=== PATIENT | male | born 1985 | race Caucasian/White ===

== ENCOUNTER 2020-11-16 14:10 | Emergency (ER) | payer BC ==
[~2020-11-16] VITALS: Ht 185.4 cm; Wt 127.0 kg
[2020-11-16 15:04] LABS: BILIRUBIN,URINE SMALL (NEG); CLARITY,URINE TURBID; COLOR,URINE AMBER; GLUCOSE,URINE 250 mg/dL (NEG); NITRITE,URINE POS (NEG); RBC,URINE >40 /HPF (0-2); UROBILINOGEN,URINE 0.2 mg/dL (0.2 mg/dL); WBC,URINE >40 /HPF (0-4)
[2020-11-16 15:05] LABS: BACTERIA,URINE MOD /HPF (0-FEW); SQUAMOUS EPITHELIAL CELL,UR FEW /LPF
[2020-11-16] MEDS ORDERED: CEFP200T PO (16:06)
--- NOTE | 2020-11-16 16:23 | PHYS DOC ---
Past History Additional Past Medical Histor: Meth abuse Past Surgical History: Cholecystectomy Alcohol Use: None General Adult EDM: Chief Complaint: BLOOD IN URINE HPI: HPI: 35-year-old male past medical history significant for diabetes, bipolar disorder, hypertension and hyperlipidemia, presents the ED with complaints of dysuria and hematuria for the past week. Patient states he relapsed and smoked methamphetamine 1 week ago and is now having groin pain every time he urinates. He denies any sexual activity, urethral discharge, genital rash and testicular discomfort. Review of Systems: Review of Systems: Constitutional: Denies fever or chills Eyes: Denies change in visual acuity HENT: Denies nasal congestion or sore throat Respiratory: Denies cough or shortness of breath Cardiovascular: Denies chest pain or edema GI: Denies nausea or vomiting, : Denies incontinence or saddle anesthesia or urethral discharge Musculoskeletal: Denies back pain or CVA tenderness Integument: Denies rash or diaphoresis Neurologic: Denies headache, focal weakness or sensory changes Endocrine: Denies polyuria or polydipsia Lymphatic: Denies swollen glands Psychiatric: Denies depression or anxiety Allergies: Allergies: Allergies Coded Allergies Type Severity Reaction Last Updated Verified No Known Drug Allergies 11/16/20 No Physical Exam: PE: Constitutional: Well developed, well nourished, no acute distress, non-toxic appearance. HENT: Normocephalic, atraumatic, Eyes: EOMI, conjunctiva normal, no discharge. Neck: Normal range of motion, supple, Cardiovascular: S1/2 present, regular rhythm Lungs & Thorax: Speaking in full sentences, bilateral equal chest rise, no tachypnea or increased work of breathing Abdomen: soft, no tenderness, Skin: Warm, dry, no erythema, no rash. [] Extremities: No tenderness, no cyanosis, Neurologic: Alert and oriented X 3, normal motor function, normal sensory function, no focal deficits noted. [] Psychologic: Affect normal, judgement normal, mood normal. [] : Chaperoned by male RN, circumcised, no scrotal pain, no urethral discharge, no rash, no bleeding or signs of trauma Current Patient Data: Labs: Laboratory Tests Test 11/16/20 14:33 Urine Collection Type Unknown Urine Color Ida Urine Clarity Turbid Urine pH 5.5 Urine Specific [place] >=1.030 Urine Protein >100 mg/dl (NEG-TRACE) Urine Glucose (UA) 250 mg/dL (NEG) Urine Ketones (Stick) 15 mg/dL (NEG) Urine Blood Large (NEG) Urine Nitrite Pos (NEG) Urine Bilirubin Small (NEG) Urine Urobilinogen Dipstick 0.2 mg/dL (0.2 mg/dL) Urine Leukocyte Esterase Small (NEG) Urine RBC >40 /HPF (0-2) Urine WBC >40 /HPF (0-4) Urine Squamous Epithelial Cells Few /LPF Urine Bacteria Mod /HPF (0-FEW) Vital Signs: Vital Signs Date Time Temp Pulse Resp B/P (MAP) Pulse Ox O2 Delivery O2 Flow Rate FiO2 11/16/20 14:17 98.3 104 16 111/54 (73) 98 Room Air EKG: EKG: [] Radiology/Procedures: Radiology/Procedures: [] Heart Score: C/O Chest Pain: No Risk Factors: Risk Factors: DM, Current or recent (<one month) smoker, HTN, HLP, family history of CAD, obesity. Risk Scores: Score 0 - 3: 2.5% MACE over next 6 weeks - Discharge Home Score 4 - 6: 20.3% MACE over next 6 weeks - Admit for Clinical Observation Score 7 - 10: 72.7% MACE over next 6 weeks - Early Invasive Strategies Course & Med Decision Making: Course & Med Decision Making Pertinent Labs and Imaging studies reviewed. (See chart for details) Concern for UTI with likely hemorrhagic cystitis. exam with no signs of trauma. Patient reports he is not sexually active. We will treat for com plicated UTI. Will discharge home with strict ED return precautions were given for fever, flulike symptoms, flank pain, nausea, vomiting or confusion. Encouraged urgent outpatient follow-up with PMD and urology for definitive management. Life-threatening processes were considered but are low suspicion at this time, given history, physical exam and ED workup. Pt was educated on all prescription medications and adverse effects. All patient's questions were answered and pt was stable at time of discharge. Life/limb-threatening differential includes but is not limited to, trauma, infection, nephrolithiasis, kidney disease, malignancy, obstructive uropathy, BPH, AAA/AVF/aortic dissection, or schistosomiasis. I have spoken with the patient and/or caregivers. I explained the patient's condition, diagnoses and treatment plan based on the information available to me at this time. I have answered the patient and/or caregiver's questions and addressed any concerns. The patient and/or caregivers have a good understanding of patient's diagnosis, condition and treatment plan as can be expected at this point. Vital signs have been stable. Patient's condition is stable and appropriate for discharge from the emergency department. Patient will pursue further outpatient evaluation with primary care physician or other designated or consulting physician as outlined in the discharge instructions. The patient and/or caregivers are agreeable to this plan of care and follow-up instructions have been explained in detail. The patient and/or caregivers have received these instructions in written form and have expressed an understanding of the discharge instructions. The patient and/or caregivers are aware that any significant change of condition or worsening of symptoms sh ould prompt immediate return to this or the closest emergency department or call to [phone]. Josh Disclaimer: Josh Disclaimer: This electronic medical record was generated, in whole or in part, using a voice recognition dictation system. Departure Departure: Impression: Primary Impression: UTI (urinary tract infection) Disposition: 01 HOME / SELF CARE / HOMELESS Condition: STABLE Referrals: JERRY MACARIO (PCP) Follow up with your pcp in 1-2 days or [facility] [phone] OR [facility]-Dr. Ronquillo [phone] Patient Instructions: Urinary Tract Infection Additional Instructions: FOLLOW WITH UROLOGY: [facility] [address] [place] [address] OR [facility] [address] [place] [id number] EMERGENCY DEPARTMENT GENERAL DISCHARGE INSTRUCTIONS Thank you for coming to [facility] (ED) today and trusting us with you care. We trust that you had a positivie experience in our Emergency Department. If you wish to speak to the department management, you may call the director at [phone]. YOUR FOLLOW UP INSTRUCTIONS ARE FOLLOWS: 1. Do you have a private Doctor? If you do not have a private doctor, please ask for a resource list of physicians or clinics that may be able to assist you with follow up care. 2. The Emergency Physician has interpreted your x-rays. The X-Ray specialist will also review them. If there is a change in the findings, you will be notified in 48 hours when at all possible. 3. A lab test or culture has been done, your results will be reviewed and you will be notified if you need a change in treatment. ADDITIONAL INSTRUCTIONS AND INFORMATION: 1. Your care today has been supervised by a physician who is specially trained in emergency care. Many problems require more than one evaluation for a complete diagnosis and treatment. We recommend that you schedule your follow up appointment as recommended to ensure complete treatment of you illness or injury. If you are unable to obtain follow up care and continue to have a problem, or if your condition worsens, we recommend that you return to the ED. 2. We are not able to safely determine your condition over the phone nor are we able to give sound medical advice over the phone. For these safety reasons, if you call for medical advice we will ask you to come to the ED for further evaluation. 3. If you have any questions regarding these discharge instructions please call the ED at [phone]. SAFETY INFORMATION: In the interest of safety, wellness, and injury prevention; we encourage you to wear your sealbelt, if you smoke; quite smoking, and we encourage family to use a protective helmet for bicycling and other sporting events that present an increased risk for head injury. IF YOUR SYMPTOMS WORSEN OR NEW SYMPTOMS DEVELOP, OR YOU HAVE CONCERNS ABOUT YOUR CONDITION; OR IF YOUR CONDITION WORSENS WHILE YOU ARE WAITING FOR YOUR FOLLOW UP APPOINTMENT; EITHER CONTACT YOUR PRIMARY CARE DOCTOR, THE PHYSICIAN WHOSE NAME AND NUMBER YOU WERE GIVEN, OR RETURN TO THE ED IMMEDIATELY. Scripts Cefpodoxime Proxetil (CEFPODOXIME PROXETIL) 200 Mg Tablet 1 TAB PO BID for uti for 14 Days, #28 TAB Prov: AMELIE VAZQUEZ DO 11/16/20 AMELIE VAZQUEZ DO Nov 16, 2020 16:23
[2020-11-16 16:30] VITALS: BP 116/58
== END 2020-11-16 16:37 | disposition home or self-care (01) ==
LOC: ER 14:10
DX: N39.0 Urinary tract infection, site not specified (principal); E11.9 Type 2 diabetes mellitus without complications; I10 Essential (primary) hypertension; F31.9 Bipolar disorder, unspecified; E78.5 Hyperlipidemia, unspecified; Z90.49 Acquired absence of other specified parts of digestive tract
CPT/HCPCS: 36415; 81001; 87077; 87086; 87186; 87491; 87591; 99283

== ENCOUNTER → 2021-01-16 | Outpatient (CLI) | payer BC ==
[~2021-01-16] MED LIST: CEFP200T PO
[2021-01-16 09:25] LABS: CREATININE 1.1 mg/dL (0.7-1.3); GFR 76.6
[2021-01-16] MEDS: IOHEXOL 300 MG/ML 75 ML VIAL. IV ONE (09:35)
--- NOTE | 2021-01-16 10:45 | RAD ---
EXAMINATION: CT ABDOMEN+PELVIS WO+W (CT ABDOMEN/PELVIS WITHOUT AND WITH IV CONTRAST, INCLUDING EXCRET ORY PHASE IMAGING (CT UROGRAM)) CLINICAL HISTORY: Hematuria. TECHNIQUE: CT urogram protocol including unenhanced, renal parenchymal phase and excretory phase edouard l imaging was obtained following intravenous contrast. CT Dose Reduction Employed: One or more of the following individualized dose reduction techniques wer e utilized for this examination: 1. Automated exposure control 2. Adjustment of the mA and/or kV ac cording to patient size 3. Use of iterative reconstruction technique. COMPARISON: CT abdomen/pelvis 06/19/2017 FINDINGS: KIDNEYS AND URINARY TRACT: Right: No renal calculi or mass. Opacified calyces, renal pelvis, and ureter unremarkable with no fitikhar dence of dilation, filling defect, or stricture. Left: No renal calculi or mass. Opacified calyces, renal pelvis, and ureter unremarkable with no evid ence of dilation, filling defect, or stricture. Bladder/Pelvis: No evidence of filling defect, calculus, or wall thickening. Central punctate prostat ic calcification. ABDOMEN AND PELVIS: Visualized heart and lungs unremarkable. Cholecystectomy. Liver, pancreas, spleen, and adrenal glands unremarkable. No bowel dilation or definite wall thickening. Appendix within normal limits. No abdominal aortic or iliac artery aneurysm. No evidence of acute osseous abnormality. IMPRESSION: No evidence of acute abdominopelvic abnormality. No urolithiasis or evidence of obstructive uropathy. Electronically signed by: Ham Morel DO (01/16/2021 10:43 AM) [facility]
== END ==
LOC: CT 08:43
PROVIDERS: ATTEND Specialist
DX: N42.89 Other specified disorders of prostate (principal); R31.1 Benign essential microscopic hematuria; Z90.49 Acquired absence of other specified parts of digestive tract
CPT/HCPCS: 36415; 74178; 82565; 84520; Q9967

== ENCOUNTER 2021-02-23 00:08 | Emergency (ER) | payer BC ==
[~2021-02-23] VITALS: Ht 185.4 cm; Wt 133.8 kg
--- NOTE | 2021-02-23 00:29 | PHYS DOC ---
Past History Past Medical History: UTI Additional Past Medical Histor: Meth abuse Past Surgical History: Cholecystectomy Alcohol Use: None General Adult HPI: HPI: ".. I ve been having problems.. with blood in my urine.. my doctor sent me over to get a urine cultures and start on some antibiotics.. " Patient is a 35 year old male who presents with above hx and complaints of hematuria. Discussed pt. with Dr. Vilchis. [phone]. Pt. follow with Dr. Zeus Reddy in the same group [phone]. She advised patient had previous been worked up for his hematuria. Does not feel that this is renal colic. Request pt get UA and culture. Then start pt on Bactrim. Patient does have obvious hematuria. No history of anticoagulants. No history of trauma. No history of STDs. No history of travel or sick ill contacts. No history immunosuppression. Patient requesting shot of antibiotics also at this time. Patient follows with Dr. Bri Sparrow as primary. Review of Systems: Review of Systems: Constitutional: Denies fever or chills Eyes: Denies change in visual acuity HENT: Denies nasal congestion or sore throat Respiratory: Denies cough or shortness of breath Cardiovascular: Denies chest pain or edema GI: Denies abdominal pain, nausea, vomiting, bloody stools or diarrhea : Complains of dysuria and hematuria Musculoskeletal: Denies back pain or joint pain Integument: Denies rash Neurologic: Denies headache, focal weakness or sensory changes Endocrine: Denies polyuria or polydipsia Lymphatic: Denies swollen glands Psychiatric: Denies depression or anxiety Family History: Family History: Noncontributory to presentation. Current Medications: Current Meds: See nursing for home meds Allergies: Allergies: Allergies Coded Allergies Type Severity Reaction Last Updated Verified No Known Drug Allergies 11/16/20 No Physical Exam: PE: Constitutional: Well developed, well nourished, no acute distress, non-toxic appearance. [] HENT: Normocephalic, atraumatic, bilateral external ears normal, oropharynx moist, no oral exudates, nose normal. [] Eyes: PERRLA, EOMI, conjunctiva normal, no discharge. [] Neck: Normal range of motion, no tenderness, supple, no stridor. [] Cardiovascular:Heart rate regular rhythm, no murmur [] Lungs & Thorax: Bilateral breath sounds clear to auscultation [] Abdomen: Bowel sounds normal, soft, no tenderness, no masses, no pulsatile masses. Obese. Circumcised male. Testicles descended. Nontender. Skin: Warm, dry, no erythema, no rash. [] Back: No tenderness, no CVA tenderness. [] Extremities: No tenderness, no cyanosis, no clubbing, ROM intact, no edema. [] Neurologic: Alert and oriented X 3, normal motor function, normal sensory functi on, no focal deficits noted. [] Psychologic: Affect anxious, judgement normal, mood normal. [] EKG: EKG: [] Radiology/Procedures: Radiology/Procedures: [] Heart Score: C/O Chest Pain: N/A Risk Factors: Risk Factors: DM, Current or recent (<one month) smoker, HTN, HLP, family history of CAD, obesity. Risk Scores: Score 0 - 3: 2.5% MACE over next 6 weeks - Discharge Home Score 4 - 6: 20.3% MACE over next 6 weeks - Admit for Clinical Observation Score 7 - 10: 72.7% MACE over next 6 weeks - Early Invasive Strategies Course & Med Decision Making: Course & Med Decision Making Pertinent Labs and Imaging studies reviewed. (See chart for details) Patient follow-up pending urinary cultures. Patient push fluids. Patient vitamin C drinks. Patient take Bactrim DS twice a day. Keep follow-up with urology. Keep follow-up with Dr. Sparrow. Return if any concerns. Avoid NSAIDs.x 24- 48 hrs. Impression: 1. Hematuria 2. Dysuria [] Dragon Disclaimer: Dragon Disclaimer: This electronic medical record was generated, in whole or in part, using a voice recognition dictation system. Departure Departure: Referrals: BRI SPARROW (PCP) Scripts Sulfamethoxazole/Trimethoprim (BACTRIM DS TABLET) 1 Each Tablet 1 TAB PO BID for hematuria for 10 Days, #20 TAB 0 Refills Prov: RAFI MERRITT MD 02/23/21 Josh Disclaimer This chart was dictated in whole or in part using Voice Recognition software in a busy, high-work load, and often noisy Emergency Department environment. It may contain unintended and wholly unrecognized errors or omissions. RAFI MERRITT MD Feb 23, 2021 00:29
[2021-02-23] MEDS ORDERED: SULF1TAB24 PO (00:35)
[2021-02-23] MEDS ORDERED: cefTRIAXone SODIUM 1 GM VIAL ONE (00:50)
[2021-02-23] MEDS ORDERED: SMZ/TMP 800/160MG TABLET. PO ONE (01:00)
[2021-02-23] MEDS ORDERED: cefTRIAXone IM 1 GM VIAL IM ONE (01:00)
[2021-02-23 01:10] LABS: CLARITY,URINE BLOODY; COLOR,URINE RED
[2021-02-23 01:11] LABS: BACTERIA,URINE FEW /HPF (0-FEW); RBC,URINE >40 /HPF (0-2); SQUAMOUS EPITHELIAL CELL,UR OCC /LPF
[2021-02-23 01:21] VITALS: BP 116/58
== END 2021-02-23 01:20 | disposition home or self-care (01) ==
LOC: ER 00:08
DX: R31.9 Hematuria, unspecified (principal); R30.0 Dysuria; Z87.440 Personal history of urinary (tract) infections; Z90.49 Acquired absence of other specified parts of digestive tract
CPT/HCPCS: 36415; 81001; 87086; 87491; 87591; 96372; 99283; J0696